=== PATIENT | male | born 2000 | race Two or more races ===

== ENCOUNTER 2021-12-25 13:14 | Emergency (ER) | payer SELFPAY ==
[~2021-12-25] VITALS: Ht 188 cm; Wt 90.0 kg
[2021-12-25 13:22] VITALS: BP 154/98
[2021-12-25] MEDS ORDERED: IBUP800T27 PO (14:45)
[2021-12-25] MEDS ORDERED: CEPH-509 PO (14:45)
== END 2021-12-25 15:09 | disposition home or self-care (01) ==
LOC: ER 13:14
DX: L60.0 Ingrowing nail (principal)